=== PATIENT | male | born 1985 | race Caucasian/White ===

== ENCOUNTER 2023-12-22 11:40 | Emergency (ER) | payer OTHER ==
--- NOTE | 2023-12-22 12:05 | ED Physician Documentation ---
History of Present Illness - Stated complaint Stated Complaint: BLURRY VIS,FEVER - Chief complaint Chief Complaint: General - History obtained from History obtained from: Patient - Additonal information Additional information: Otherwise healthy 38-year-old gentleman has had URI symptoms last 2 days with congestion and low-grade fevers and some fatigue. Today he had an episode at rest where he felt flushed and like his hands and face were swollen and about 5 minutes later had a syncopal episode without injury. He was unconscious for about a minute per the . He does have very mild chest tightness with this. Denies shortness of breath. He had a similar episode of flushing about 3 weeks ago not associated with syncope at that time. Both kids and his have been sick with fevers, but their symptoms were little different with more GI symptoms which she does not have. He did have some alcoholic beverages last 2 nights, but did not feel it was in excess nor was he hung over this morning. PD PAST MEDICAL HISTORY - Past Medical History Past Medical History: No Cardiovascular: None Respiratory: None Neuro: None Endocrine/Autoimmune: None GI: None : None HEENT: None Psych: None Musculoskeletal: None Derm: None - Past Surgical History Past Surgical History: No - Present Medications Home Medications: Ambulatory Orders Medication Instructions Recorded Confirmed No Known Home Medications 12/22/23 12/22/23 - Allergies Allergies/Adverse Reactions: Allergies Allergy/AdvReac Type Severity Reaction Status Date / Time cefaclor [From Ceclor] Allergy Hives Verified 12/22/23 11:47 sulfamethoxazole Allergy Hives Verified 12/22/23 11:47 [From Bactrim] trimethoprim [From Bactrim] Allergy Hives Verified 12/22/23 11:47 - Social History Does the pt smoke?: No Smoking Status: Never smoker Does the pt drink ETOH?: No Does the pt have substance abuse?: No - Immunizations Immunizations are current?: Yes - POLST Patient has POLST: No PD ED PE NORMAL - Vitals Vital signs reviewed: Yes - General General: Alert and oriented X 3, No acute distress - HEENT HEENT: PERRL, EOMI, Ears normal, Pharynx benign - Neck Neck: Supple, no meningeal sign, No bony TTP - Cardiac Cardiac: RRR, No murmur - Respiratory Respiratory: No respiratory distress, Clear bilaterally - Abdomen Abdomen: Non tender - Extremities Extremities: No edema, No calf tenderness / cord - Neuro Neuro: Alert and oriented X 3 Eye Opening: Spontaneous Motor: Obeys Commands Verbal: Oriented GCS Score: 15 Results - Vitals Vitals: Vital Signs - 24 hr 12/22/23 12/22/23 12/22/23 11:47 12:14 13:23 Temperature 36.8 C Heart Rate 70 80 68 Respiratory 18 26 H 16 Rate Blood Pressure 130/82 H 122/86 H 114/76 O2 Saturation 99 97 Oxygen O2 Source Room air - EKG (time done) 1218 EKG releavant findings:: EKG personally interpreted by author of this note. Relevant findings are: Rate: Rate (enter#) (67) Rhythm: NSR Geraldine: Normal Intervals: Normal GA QRS: Normal Ischemia: Normal ST segments Computer interpretation: Agree with computer - Labs Labs: Laboratory Tests 12/22/23 12/22/23 12:11 12:11 WBC 3.2 L RBC 4.86 Hgb 14.2 Hct 44.2 MCV 90.9 MCH 29.2 MCHC 32.1 RDW 12.0 Plt Count 172 MPV 10.4 Neut # (Auto) Not Reportable Lymph # (Auto) Not Reportable [place] # (Auto) Not Reportable Eos # (Auto) Not Reportable Baso # (Auto) Not Reportable Absolute Nucleated RBC Not Reportable Total Counted 100 Band Neuts % (Manual) 0 Reactive Lymphs % (Man) 5 Abnorm Lymph % (Manual) 0 Nucleated RBC % Not Reportable Neutrophils # (Manual) 2.0 Lymphocytes # (Manual) 1.0 L Monocytes # (Manual) 0.1 Eosinophils # (Manual) 0.1 Basophils # (Manual) 0.0 Nucleated RBCs 0 Differential Comment MANUAL DIFFERENTIAL Platelet Estimate NORMAL (130-450,000) Platelet Morphology NORMAL APPEARANCE RBC Morph Micro Appear NORMAL APPEARANCE Sodium 139 Potassium 4.0 Chloride 101 Carbon Dioxide 29 Anion Gap 9.0 BUN 12 Creatinine 0.9 Estimated GFR (MDRD) 95 Glucose 147 H Calcium 9.3 Total Bilirubin 0.3 AST 19 ALT 31 Alkaline Phosphatase 75 Troponin I High Sens 4.2 Total Protein 7.1 Albumin 4.3 Globulin 2.8 Albumin/Globulin Ratio 1.5 PD Medical Decision Making - ED course ED course: 38-year-old gentleman who has what sound like a nonspecific viral syndrome and then had an episode of flushing and syncope today. Most likely from dehydration from being ill, but does need workup to evaluate for heart issues despite his otherwise young healthy status. As such EKG was done and unremarkable. CBC showing mild lymphopenia most consistent with viral infection, CMP unremarkable save mild hyperglycemia discussed with patient and to follow-up as outpatient. Troponin normal/negative. He was feeling back to normal here. Advised close follow-up with consideration for cardiac monitoring. Departure - Departure Disposition: Home, Self Care Clinical Impression: Viral syndrome Syncope Qualifiers: Syncope type: unspecified Qualified Code(s): R55 - Syncope and collapse Condition: Good Record reviewed to determine appropriate education?: Yes Instructions: ED Fainting Unkn Cause, ED Viral Syndrome Comments: Your workup today was negative/normal with normal EKG and normal CBC and CMP with 2 exceptions. 1 your white blood cell count was on the low side which is most consistent with a viral infection, and to your blood sugar was on the high side at 147. 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 Recommend consideration for prolonged pipeline controller ing such as with a Zio patch. Drink plenty of fluids and rest. Return for new or worsening symptoms. Forms: PCP List Discharge Date/Time: 12/22/23 13:39
[2023-12-22 12:15] VITALS: O2SAT 97
[2023-12-22 12:15] LABS: BASOPHILS % (AUTO) 0.3 %; EOSINOPHILS % (AUTO) 1.9 %; HCT - HEMATOCRIT 44.2 % (42.0-52.0); HGB - HEMOGLOBIN 14.2 g/dL (14.0-18.0); LYMPHOCYTES % (AUTO) 32.5 %; MEAN CORPUSCULAR HEMOGLOBIN 29.2 pg (27.0-31.0); MEAN CORPUSCULAR HGB CONC 32.1 g/dL (32.0-36.0); MEAN CORPUSCULAR VOLUME 90.9 fL (80.0-94.0); MEAN PLATELET VOLUME 10.4 fL (7.4-11.4); MONOCYTES % (AUTO) 3.5 %; NEUTROPHILS % (AUTO) 61.8 %; PLT - PLATELET COUNT 172 10^3/uL (130-450); RED BLOOD COUNT 4.86 10^6/uL (4.70-6.10); WHITE BLOOD COUNT 3.2 x10^3/uL (4.8-10.8)
[2023-12-22 12:19] LABS: ABNORMAL LYMPHS % (MANUAL) 0 %; BAND NEUTROPHILS % (MANUAL) 0 %
[2023-12-22] MEDS: SODIUM CHLORIDE 0.9% 1,000 ML IV STA (12:21)
[2023-12-22 12:34] LABS: ALBUMIN 4.3 g/dL (3.2-5.5); ALBUMIN/GLOBULIN RATIO 1.5 (1.0-2.2); BILIRUBIN,TOTAL 0.3 mg/dL (0.2-1.0); CALCIUM 9.3 mg/dL (8.5-10.3); CREATININE 0.9 mg/dL (0.6-1.3); TOTAL PROTEIN 7.1 g/dL (6.4-8.9)
[2023-12-22 12:45] LABS: DIFFERENTIAL COMMENT MANUAL DIFFERENTIAL; EOSINOPHILS # (MANUAL) 0.1 10^3/uL (0-0.7); LYMPHOCYTES % (MANUAL) 27 %; MONOCYTES # (MANUAL) 0.1 10^3/uL (0.0-1.0); NUCLEATED RBC (MANUAL) 0 %; PLATELET ESTIMATE, MANUAL NORMAL (130-450,000) (NORMAL); PLATELET MORPHOLOGY NORMAL APPEARANCE (NORMAL); RBC MORPHOLOGY (MULTIPLE) NORMAL APPEARANCE (NORMAL); REACTIVE LYMPHS % (MANUAL) 5 %
[2023-12-22 13:26] LABS: TROPONIN I HIGH SENSITIVITY 4.2 ng/L (2.3-19.7)
[2023-12-22 13:27] VITALS: BP 114/76
== END 2023-12-22 13:39 | disposition home or self-care (01) ==
LOC: ED 11:40
DX: B34.9 Viral infection, unspecified (principal); R55 Syncope and collapse; R73.9 Hyperglycemia, unspecified
CPT/HCPCS: 36415; 80053; 84484; 85025; 93005; 99283; 99284